=== PATIENT | male | born 1930 | race Caucasian/White ===

== ENCOUNTER 2018-11-17 19:11 | Inpatient (IN) | payer MEDICARE ==
[2018-11-17 20:13] LABS: Hemoglobin 15.1 g/dL (14.0-18.0); Mean Corpuscular HGB CONC 32.5 g/dL (32.0-36.0); Mean Corpuscular Hemoglobin 31.7 pg (27.0-31.0); Mean Corpuscular Volume 97.5 fL (78.0-98.0); Mean Platelet Volume 6.8 fL (7.4-10.4); Platelet Count 273 thou/uL (130-400); RBC Distribution Width 12.4 % (11.5-14.5); Red Blood Cell (RBC) Count 4.78 mill/uL (4.70-6.10); White Blood Cell (WBC) Count 29.6 thou/uL (4.8-10.8)
[2018-11-17] MEDS ORDERED: Acetaminophen 325 MG TAB ONE (20:20)
[2018-11-17] MEDS ORDERED: Sodium Chloride 0.9% 100 ML ONE (20:20)
[2018-11-17] MEDS ORDERED: Piperacillin/Tazobactam 4.5 GM VIAL ONE (20:20)
[2018-11-17 20:28] LABS: Lymphocytes 3 % (21-51); MDiff Complete? YES; Monocytes 9 % (0-10); Neutrophil 88 % (42-75); Platelet Morphology Comment Appears Adequate; RBC Morphology Normal
[2018-11-17 20:30] LABS: ALT (SGPT) 26 U/L (8-55); AST (SGOT) 25 U/L (5-34); Albumin 4.2 g/dL (3.4-4.8); Alkaline Phosphatase 152 U/L (40-150); Anion Gap 15 mmol/L (10-20); BUN (Urea Nitrogen) 12 mg/dL (8.4-25.7); Bilirubin, Total 1.3 mg/dL (0.2-1.2); Calc. Creatinine Clearance 0 mL/min (70-130); Calcium 9.5 mg/dL (7.8-10.44); Carbon Dioxide 23 mmol/L (23-31); Chloride 100 mmol/L (98-107); Estimated GFR-MDRD 72; Globulin 3.4 g/dL (2.4-3.5); Glucose 140 mg/dL (83-110); Protein, Total 7.6 g/dL (5.8-8.1); Sodium 134 mmol/L (136-145)
[2018-11-17 20:57] LABS: Bilirubin Small (Negative); Blood, Urine Moderate (Negative); Clarity CLOUDY (Clear); Glucose, Urine (Dipstick) Negative (Negative); Leukocyte Large (Negative); Nitrite Positive (Negative); Protein, Urine (Dipstick) 30 mg/dL (Neg-Trace); Specific Gravity, Urine 1.027 (1.002-1.036)
[2018-11-17 20:58] LABS: Bacteria/HPF 2+ HPF (None Seen); Hyaline Casts/LPF 4-6 HYALINE CAST LPF (0-3 Hyaline); Pathc Cast-AUWi Flag 1.01 (0-2.49); Squamous Epithelial 0-3 HPF (0-3)
--- NOTE | 2018-11-17 22:16 | CT ---
CT OF THE HEAD WITHOUT CONTRAST: Date: 11-17-18 History: Fall. Head trauma. Technique: Axial CT imaging at 5 mm intervals from vertex through the skull base without contrast. FINDINGS: There is supraorbital and periorbital soft tissue swelling on the left. There is no intracranial hemo rrhage, midline shift, or mass effect. There is mild diffuse cerebral volume loss. The imaged paranasal sinuses and mastoid air cells appear well aerated. There is no displaced calvari al fracture. Punctate focus of gas noted within the soft tissue swelling in the left supraorbital reg ion, evidence of laceration. IMPRESSION: Left periorbital/supraorbital soft tissue injury. No associated fracture or intracranial hemorrhage. POS: [facility]
--- NOTE | 2018-11-17 22:18 | RAD ---
FRONTAL RADIOGRAPH CHEST: Date: 11-17-18 Comparison: 11-06-09 History: Fall, injury. FINDINGS: Round radiodensity with central lucency noted within the left cardiophrenic angle suggesting a modera te sized hiatal hernia. The old left sided rib fractures are noted. There is increased linear interstitial density bilaterall y with no pneumothorax, pleural fluid, or lobar consolidation. IMPRESSION: No focal consolidation or alveolar edema. Incidental findings as above. POS: [facility]
[2018-11-17] MEDS ORDERED: Ondansetron ODT 4 MG TAB SL PRN (22:29)
[2018-11-17] MEDS ORDERED: Ondansetron PF 4 MG/2 ML Vial IVP PRN (22:29)
[2018-11-17] MEDS ORDERED: Acetaminophen 325 MG TAB PO PRN (22:29)
--- NOTE | 2018-11-17 22:50 | CT ---
CERVICAL SPINE CT SCAN WITHOUT IV CONTRAST: History: Recent falls with injury to head and neck. FINDINGS: Severe disc osteophytosis and facet arthrosis, evidence for severe spondylosis. No evidence for acute fracture or facet dislocation. Bony demineralization. IMPRESSION: Bony demineralization with spondylosis without acute fracture or dislocation. POS: [facility]
[2018-11-18] MEDS ORDERED: Piperacillin/Tazobactam 3.375 GM in Sodium Chloride 0.9% 100 ML IVPB SCH (04:00)
[2018-11-18] MEDS ORDERED: Diabetic Tussin 200 MG/10 ML UDCUP PO PRN (08:34)
[2018-11-18] MEDS ORDERED: Ondansetron ODT 4 MG TAB PO PRN (08:34)
[2018-11-18] MEDS ORDERED: Nitroglycerin 0.4 MG TAB (25 Tab Bottle) SL PRN (08:34)
[2018-11-18] MEDS ORDERED: Senokot S 8.6-50 MG TAB PO PRN (08:34)
[2018-11-18] MEDS ORDERED: Ondansetron PF 4 MG/2 ML Vial IVP PRN (08:34)
[2018-11-18] MEDS ORDERED: cloNIDine 0.1 MG TAB PO PRN (08:34)
[2018-11-18] MEDS ORDERED: Bisacodyl 5 MG TAB PO PRN (08:34)
[2018-11-18] MEDS ORDERED: hydrALAZINE 20 MG/ML VIAL SLOW IVP PRN (08:34)
[2018-11-18] MEDS: Saccharomyces boulardii 250 MG CAP PO SCH (09:10)
[2018-11-18] MEDS: Famotidine 20 MG TAB PO SCH ×2 (09:10→20:05)
[2018-11-18] MEDS: Enoxaparin Sodium 40 MG/0.4 ML SYRINGE SC SCH (09:10)
[2018-11-18] MEDS: Sodium Chloride 0.9% 1,000 ML IV SCH ×2 (09:11→23:28)
[2018-11-18] MEDS ORDERED: Escitalopram Oxalate 10 mg Tablet PO SCH ×2 (09:32→10:15)
--- NOTE | 2018-11-18 11:01 | HP ---
PRIMARY CARE PHYSICIAN: Kirill Long MD PRIMARY UROLOGIST: Duglas Delgadillo MD PRIMARY NEUROLOGIST: Aries Frost MD CHIEF COMPLAINT: Multiple falls and urinary frequency. HISTORY OF PRESENTING ILLNESS: Mr. Watkins is a very pleasant 88-year-old male with past medical history of non-Hodgkin lymphoma in remission for 15 years, as well as history of hypertension as well as history of benign prostatic hyperplasia, and alzheimer dementia, who presented to the emergency room with the above-mentioned complaint. History is mainly obtained by the patient's and supplemented by the patient himself, who is not a very good historian because of some [id number] dementia. Mr. Watkins is usually pretty independent and walks without help of a walker or a cane, but for the last 2 days, his noticed that he has been having multiple falls. He fell 3 times the day before yesterday and yesterday morning, he fell again in the bathroom and hit his head with bleeding all over. He was brought to our emergency room. There, he was found to have low-grade fever of 101.5. Further evaluation revealed leukocytosis with left shift. The source most likely being urine with urine bacteria +2 and multiple wbc's, leukocyte esterase, positive nitrites, etc. He was given Zosyn in the emergency room along other supportive measures like antiemetics and fluids and is now being admitted with the presumptive diagnosis of sepsis due to urinary tract infection. He had a CT scan done in the emergency room, which was negative for any intracranial or subdural bleed. His CT scan of the cervical spine was negative for any acute fracture or dislocation. Chest x-ray did not show any evidence of consolidation or edema. Code status, full code discussed with the patient. His is present at the bedside and conquer. His , Ms. Webster is a medical power of assistant city attorney for him. They have been for 15 years. The patient's also reports increased urinary frequency. She states that his urinalysis was done about a month ago by Dr. Delgadillo and at that time, it was without any evidence of infection. She denies any fevers or chills at home. He does have poor appetite and has been barely able to drink Pedialyte all day yesterday. There is no history of any chest pain, shortness of breath, otherwise. PAST MEDICAL HISTORY: 1. Alzheimer dementia. 2. History of non-Hodgkin lymphoma, currently in remission. 3. History of basal cell carcinoma status post removal. 4. BPH. PAST SURGICAL HISTORY: Skin cancer removal. PSYCHIATRIC HISTORY: Anxiety. SOCIAL HISTORY: He is and lives with his . Normally, he is independently mobile. No history of drug, tobacco, or alcohol abuse. This is his second marriage. ALLERGIES: NO KNOWN MEDICATION ALLERGIES. HOME MEDICATIONS: As follows; 1. Clonazepam 1 mg p.o. at bedtime. 2. Memantine 10 mg p.o. b.i.d. 3. Lexapro 10 mg daily. 4. Tamsulosin 0.4 mg daily. REVIEW OF SYSTEMS: A 12-point review of system is done, it is negative except for those mentioned in the history and physical. LABORATORY DATA: CBC shows WBCs 29.6 with 88% neutrophils. Hemoglobin, hematocrit, and platelet count are unremarkable. Serum chemistry shows sodium of 134, blood sugar 140, total bilirubin is mildly elevated to 1.3 and alkaline phosphatase 152, otherwise unremarkable. Lactic acid 1.9. Urinalysis is positive for blood, ketones, nitrite, bilirubin, urobilinogen, leukocyte esterase, wbc's, and multiple bacteria. Chest x-ray by my review has no evidence to suggest pleural effusion, edema, or infiltrate. CT scan of the brain is negative for any subdural hematoma or intracerebral hemorrhage. He does have left periorbital and supraorbital soft tissue injury by my review. CT scan of the cervical spine is negative for any evidence of fractures or dislocation. A 12-lead EKG by my review shows sinus tachycardia at 106 beats per minute with first-degree AV block. PHYSICAL EXAMINATION: VITAL SIGNS: Upon presentation to the ER, blood pressure 146/66, pulse of 106, respirations 22, saturating 95% on room air, and temperature 101.5. GENERAL: No acute distress. Awake, alert, and oriented x3. He is very pleasant and jovial, in good spirits. HEENT: Mucous membrane is slightly dry. No oropharyngeal exudate or erythema. Head is normocephalic and atraumatic, but he does have some laceration on top of his left eyebrow, which has been covered with bandages. Pupils are equal and reactive to light and accommodation. NECK: Supple without any lymphadenopathy, JVD, or bruit. CHEST: Clear to auscultation without any wheezing, rales, or rhonchi. HEART: Rhythm is regular without any murmurs, rubs, or gallops. ABDOMEN: Soft, nontender, and nondistended. Positive bowel sounds. EXTREMITIES: Free of any cyanosis, clubbing, or edema. NEUROLOGIC: Nonfocal. SKIN: Free of any rashes or bruises. Feels warm and dry to touch. PSYCHIATRIC: Normal affect. IMPRESSION AND PLAN: 1. Sepsis. This is secondary to urinary tract infection. Urine culture and blood cultures have been obtained and we will follow the results. We will obtain a bladder scan given his history of benign prostatic hypertrophy to rule out urinary retention as a cause of his UTI. He will be treated with broad-spectrum IV antibiotic. We will choose 2 broad-spectrum antibiotics until the culture results are back. He will be started with sepsis protocol with IV fluids as well. He is currently hemodynamically stable and will be admitted to medical floor. His blood cultures preliminary are negative so far and his influenza rapid screening is also negative. 2. Urinary tract infection as above. 3. Dehydration. The patient will be treated with gentle IV fluids. 4. History of benign prostatic hypertrophy. The patient will continue to follow up with Dr. Delgadillo in the outpatient setting. His home medications have been restarted including Flomax. 5. History of alzheimer dementia. He has a good functional status at baseline. We will restart his memantine and clonazepam and Lexapro. He will continue to follow up with Dr. Frost, in the outpatient setting. 6. Multiple falls, most likely secondary to ongoing infection leading to dehydration. We will have OT/PT evaluate him and arrange either rehab versus home health based on his necessity and recommendation on the day of discharge. 7. Code status. Full code discussed with the patient. DISPOSITION: Mr. Watkins is currently being admitted to the medical floor for sepsis secondary to UTI without any evidence of septic shock. He is hemodynamically stable. Estimated length of stay at this time is at least 2 to 3 midnights. Further management will depend upon his clinical course. Job ID: [id number]
[2018-11-18] MEDS: Piperacillin/Tazobactam 3.375 GM in Sodium Chloride 0.9% 100 ML IVPB SCH ×3 (12:34→23:24)
[2018-11-18] MEDS: Tamsulosin HCl 0.4 MG CAP PO SCH (20:05)
[2018-11-18] MEDS: clonazePAM 1 MG TAB PO SCH (20:05)
[2018-11-19] MEDS: Piperacillin/Tazobactam 3.375 GM in Sodium Chloride 0.9% 100 ML IVPB SCH ×3 (05:22→17:32)
[2018-11-19 06:49] LABS: Hemoglobin 11.6 g/dL (14.0-18.0); Mean Corpuscular HGB CONC 32.6 g/dL (32.0-36.0); Mean Corpuscular Hemoglobin 31.8 pg (27.0-31.0); Mean Corpuscular Volume 97.6 fL (78.0-98.0); Platelet Count 191 thou/uL (130-400); Red Blood Cell (RBC) Count 3.64 mill/uL (4.70-6.10); White Blood Cell (WBC) Count 26.6 thou/uL (4.8-10.8)
[2018-11-19 07:03] LABS: Anion Gap 9 mmol/L (10-20); BUN (Urea Nitrogen) 11 mg/dL (8.4-25.7); Calc. Creatinine Clearance 74 mL/min (70-130); Calcium 8.1 mg/dL (7.8-10.44); Carbon Dioxide 20 mmol/L (23-31); Chloride 107 mmol/L (98-107); Estimated GFR-MDRD Greater than 90; Glucose 102 mg/dL (83-110); Potassium 3.4 mmol/L (3.5-5.1); Sodium 133 mmol/L (136-145)
[2018-11-19 07:19] LABS: Acanthocytes SLIGHT = 1-5 cells (100X) (None Seen); Band 6 % (5-11); Eosinophils 1 % (0-10); Lymphocytes 3 % (21-51); MDiff Complete? YES; Monocytes 9 % (0-10); Neutrophil 80 % (42-75); Platelet Morphology Comment Appears Adequate
[2018-11-19] MEDS: Famotidine 20 MG TAB PO SCH ×2 (08:21→21:20)
[2018-11-19] MEDS: Saccharomyces boulardii 250 MG CAP PO SCH (08:21)
[2018-11-19] MEDS: Escitalopram Oxalate 10 mg Tablet PO SCH (08:22)
[2018-11-19] MEDS: Enoxaparin Sodium 40 MG/0.4 ML SYRINGE SC SCH (08:22)
--- NOTE | 2018-11-19 11:54 | PRG ---
DATE OF SERVICE: 11/19/2018 SUBJECTIVE: The patient is seen and examined at the bedside. Also a friends of the family in the room during my visit along with the patient's . Apparently, he is doing better. OBJECTIVE: VITAL SIGNS: Blood pressure is 137/70, pulse is 76, respirations 16, O2 saturation is 93% on room air, and his maximal temperature is 99.3. HEENT: His head is atraumatic and normocephalic. Eyes are PERRLA. Sclerae are nonicteric. Oral mucosa is slightly dry. NECK: Supple. No lymphadenopathy. Thyroid is not palpable. LUNGS: Clear. HEART: S1 and S2 normal. No S3. No S4. No any murmur. ABDOMEN: Soft and nontender. Bowel sounds are present. No organomegaly. EXTREMITIES: No clubbing, cyanosis, or edema. NEUROLOGIC: He follows my commands. He moves his all 4 extremities. LABORATORY DATA: Labs showed a white count of 26.6, hemoglobin 11.6, hematocrit 35.5, and platelet count is 191,000. Chemistry showed a sodium of 133, potassium 3.4, BUN 11, and creatinine 0.74. IMPRESSION: 1. Sepsis secondary to urinary tract infection were growing E. coli in the urine, sensitivity is still pending. Blood cultures are negative so far. We will continue his broad-spectrum until we have more information about sensitivity. 2. Urinary tract infection as above. 3. Dehydration improved with IV fluids. 4. Benign prostatic hypertrophy. He will follow up with Dr. Delgadillo in the outpatient setting. 5. Alzheimer dementia. 6. Multiple falls on PT and OT. PLAN: As I mentioned above, continue IV antibiotics. Continue PT/OT. Continue Flomax. Continue memantine, clonazepam, and Florastor. Job ID: [id number]
[2018-11-19] MEDS: Sodium Chloride 0.9% 1,000 ML IV SCH (12:24)
[2018-11-19] MEDS: Tamsulosin HCl 0.4 MG CAP PO SCH (21:19)
[2018-11-19] MEDS: clonazePAM 1 MG TAB PO SCH (21:19)
[2018-11-20] MEDS: Piperacillin/Tazobactam 3.375 GM in Sodium Chloride 0.9% 100 ML IVPB SCH ×2 (00:36→05:07)
[2018-11-20] MEDS: Sodium Chloride 0.9% 1,000 ML IV SCH ×2 (07:36→16:43)
[2018-11-20 07:52] VITALS: BMI 26.9
[2018-11-20] MEDS: Enoxaparin Sodium 40 MG/0.4 ML SYRINGE SC SCH (08:32)
[2018-11-20] MEDS: Famotidine 20 MG TAB PO SCH ×2 (08:32→20:24)
[2018-11-20] MEDS: Saccharomyces boulardii 250 MG CAP PO SCH (08:33)
[2018-11-20] MEDS: Escitalopram Oxalate 10 mg Tablet PO SCH (08:33)
[2018-11-20 12:12] LABS: #Eosinphils 0.2 thou/uL (0.0-0.7); #Neutrophils 11.4 thou/uL (1.40-6.50); %Basophils 0.1 % (0.0-1.0); %Eosinophils 1.4 % (0.0-10.0); %Lymphocytes 6.8 % (21.0-51.0); %Monocytes 13.9 % (0.0-10.0); %Neutrophils 77.8 % (42.0-75.0); Mean Corpuscular HGB CONC 33.3 g/dL (32.0-36.0); Mean Corpuscular Hemoglobin 32.4 pg (27.0-31.0); Mean Corpuscular Volume 97.2 fL (78.0-98.0); Platelet Count 213 thou/uL (130-400); RBC Distribution Width 12.2 % (11.5-14.5); Red Blood Cell (RBC) Count 3.71 mill/uL (4.70-6.10); White Blood Cell (WBC) Count 14.7 thou/uL (4.8-10.8)
[2018-11-20 13:01] LABS: Anion Gap 12 mmol/L (10-20); BUN (Urea Nitrogen) 9 mg/dL (8.4-25.7); Calc. Creatinine Clearance 87 mL/min (70-130); Carbon Dioxide 18 mmol/L (23-31); Chloride 106 mmol/L (98-107); Estimated GFR-MDRD Greater than 90; Glucose 134 mg/dL (83-110); Potassium 3.4 mmol/L (3.5-5.1); Sodium 133 mmol/L (136-145)
[2018-11-20] MEDS ORDERED: Potassium Chloride 20 MEQ TAB PO SCH (14:00)
--- NOTE | 2018-11-20 14:33 | PRG ---
DATE OF SERVICE: 11/20/2018 SUBJECTIVE: The patient is seen and examined at the bedside. He is doing quite well. He has appetite. He does not have much complaints to offer. OBJECTIVE: VITAL SIGNS: Blood pressure is 116/62, pulse is 73, respirations 18, temperature 97.7, O2 saturation is 95% on room air. HEENT: His left eyebrow and forehead on the left side is posttraumatic. There are strips in place and the area is ecchymotic. Pupils are responding to light properly. Sclerae nonicteric. Oral mucosa is moist. NECK: Supple. LUNGS: Clear. HEART: S1, S2 normal. No S3. No S4. No murmur. ABDOMEN: Soft, nontender. Bowel sounds are present. No organomegaly. EXTREMITIES: No clubbing, cyanosis, or edema. NEUROLOGICAL: He is alert and oriented x3. There are no motor deficits. LABORATORY DATA: Labs showed white count of 14.7, hemoglobin 12.0, hematocrit 36.1, platelet count 213. Sodium of 133, potassium 3.4, chloride 106, CO2 of 18, BUN 9, creatinine 0.74, glucose 134, calcium 8.0. Microbiology; urine is growing E coli pansensitive. IMPRESSION: 1. Urosepsis caused by E coli with negative blood cultures. Positive urine culture for pansensitive E coli. We will stop his Zosyn and continue his levofloxacin IV piggyback every 24 hours. 2. Urinary tract infection, as above. 3. Dehydration, improved with IV fluids. 4. Benign prostatic hypertrophy, on Flomax. 5. Alzheimer's dementia. 6. Multiple falls home. Currently on PT and OT. PLAN: Plan is to continue his IV levofloxacin, stop Zosyn. Continue PT, OT. Continue Flomax. Continue memantine, clonazepam and Florastor. Rehabilitation unit transfer as soon as this is arranged. We will obtain CBC in the morning and replace his potassium with 40 mEq half a tablet x1. Job ID: [id number]
[2018-11-20] MEDS: Tamsulosin HCl 0.4 MG CAP PO SCH (20:24)
[2018-11-20] MEDS: clonazePAM 1 MG TAB PO SCH (20:24)
[2018-11-21] MEDS: Sodium Chloride 0.9% 1,000 ML IV SCH ×2 (03:35→08:51)
[2018-11-21 07:51] LABS: Hemoglobin 12.4 g/dL (14.0-18.0); Mean Corpuscular HGB CONC 31.7 g/dL (32.0-36.0); Mean Corpuscular Hemoglobin 30.9 pg (27.0-31.0); Mean Corpuscular Volume 97.4 fL (78.0-98.0); Mean Platelet Volume 6.8 fL (7.4-10.4); Platelet Count 239 thou/uL (130-400); RBC Distribution Width 12.2 % (11.5-14.5); Red Blood Cell (RBC) Count 4.02 mill/uL (4.70-6.10); White Blood Cell (WBC) Count 14.2 thou/uL (4.8-10.8)
[2018-11-21 07:56] LABS: Anion Gap 10 mmol/L (10-20); BUN (Urea Nitrogen) 6 mg/dL (8.4-25.7); Calc. Creatinine Clearance 96 mL/min (70-130); Calcium 8.2 mg/dL (7.8-10.44); Carbon Dioxide 23 mmol/L (23-31); Chloride 106 mmol/L (98-107); Estimated GFR-MDRD Greater than 90; Glucose 93 mg/dL (83-110); Potassium 3.5 mmol/L (3.5-5.1); Sodium 135 mmol/L (136-145)
[2018-11-21 08:29] LABS: Acanthocytes SLIGHT = 1-5 cells (100X) (None Seen); Band 2 % (5-11); Eosinophils 2 % (0-10); Lymphocytes 8 % (21-51); MDiff Complete? YES; Monocytes 21 % (0-10); Neutrophil 66 % (42-75); Platelet Morphology Comment Appears Adequate; Reactive Lymphocytes 1 % (0-10)
[2018-11-21] MEDS: Enoxaparin Sodium 40 MG/0.4 ML SYRINGE SC SCH (08:48)
[2018-11-21] MEDS: Saccharomyces boulardii 250 MG CAP PO SCH (08:49)
[2018-11-21] MEDS: Famotidine 20 MG TAB PO SCH ×2 (08:49→20:37)
[2018-11-21] MEDS: Escitalopram Oxalate 10 mg Tablet PO SCH (08:49)
[2018-11-21] MEDS: Benzonatate 100 MG CAP PO PRN (09:02)
[2018-11-21 10:24] LABS: Total PSA 14.5 ng/mL (0.0-4.0)
--- NOTE | 2018-11-21 11:48 | ULT ---
BILATERAL RENAL SONOGRAM: Date: 11/21/18 HISTORY: Renal failure. Sepsis. FINDINGS: Right kidney is 11.3 cm and left kidney is 11.6 cm. Each has a normal sonographic appearance without evidence of mass, stone, or hydronephrosis. Urinary bladder is unremarkable. IMPRESSION: Normal renal sonogram. POS: [facility]
--- NOTE | 2018-11-21 12:17 | PRG ---
DATE OF SERVICE: 11/21/2018 SUBJECTIVE: The patient is seen and examined at the bedside. He is doing well. His appetite is good. He does not have much complaints to offer. His and one of his friends are in the room during my visit. They are happy from the progress we are making in his recovery. OBJECTIVE: VITAL SIGNS: Blood pressure is 124/89, pulse is 62, temperature is 98.1, maximal temperature is 98.7, respiratory rate is 16, and O2 saturation is 91% on room air. HEENT: He is post traumatic, post fall with some strips over his left eye and bruises in this area. Pupils are responding to light properly. Sclerae are nonicteric. Oral mucosa is moist. NECK: Supple. LUNGS: Clear. HEART: S1, S2 normal. No S3. No S4. No murmur. ABDOMEN: Obese, soft, nontender. Bowel sounds are present. No organomegaly. EXTREMITIES: No clubbing, cyanosis, or edema. NEUROLOGIC: He is alert and oriented x3. There is no any motor deficits. He is able to move his all 4 extremities. There is no any sign of cranial nerves dysfunction. LABORATORY DATA: Labs showed white count of 14.2, hemoglobin 12.4, hematocrit 39.2, platelet count is 239. Sodium of 135, potassium 3.5, chloride 106, CO2 of 23, BUN 6, creatinine 0.67, glucose 93, calcium 8.2. His PSA total is 14.5, free PSA is 21% and free PSA is 3.04. Urine culture is growing E. coli, pansensitive. Ultrasound of the kidneys did not show any abnormalities. IMPRESSION: 1. Urosepsis secondary to E. coli with negative blood cultures. The patient is switched to levofloxacin. 2. Urinary tract infection as above. 3. Dehydration, improved with IV fluids. 4. Elevated PSA, to rule out malignancy. The patient has a history of BPH, and he was on Flomax. We noticed that he has mild residuals of urine after voiding ranging from 200s to 300s. Dr. Delgadillo, his primary urologist, was contacted and I discussed the case with him. We will obtain his official consultation since his PSA is significantly elevated whether this is secondary to prostatitis or malignancy of the prostate. 5. Alzheimer's dementia, mild. 6. Multiple falls at home. PLAN: Plan is to continue his levofloxacin, continue physical therapy and occupational therapy, increase Flomax to twice a day, and obtain consultation with Dr. Delgadillo since his PSA is significantly elevated above the normal range. Job ID: [id number]
[2018-11-21] MEDS ORDERED: Sodium Chloride 0.9% 250 ML 250 ML IVPB SCH (16:15)
[2018-11-21] MEDS: Tamsulosin HCl 0.4 MG CAP PO SCH (20:37)
[2018-11-21] MEDS: clonazePAM 1 MG TAB PO SCH (20:37)
[2018-11-22] MEDS: Saccharomyces boulardii 250 MG CAP PO SCH (08:19)
[2018-11-22] MEDS: Finasteride 5 MG TAB PO SCH (08:19)
[2018-11-22] MEDS: Enoxaparin Sodium 40 MG/0.4 ML SYRINGE SC SCH (08:19)
[2018-11-22] MEDS: Escitalopram Oxalate 10 mg Tablet PO SCH (08:20)
[2018-11-22] MEDS: Famotidine 20 MG TAB PO SCH ×3 (08:20→21:26)
[2018-11-22] MEDS: Sodium Chloride 0.9% 1,000 ML IV SCH ×2 (08:20→22:50)
[2018-11-22] MEDS: Tamsulosin HCl 0.4 MG CAP PO SCH ×3 (08:21→21:58)
[2018-11-22] MEDS: Benzonatate 100 MG CAP PO PRN (19:50)
[2018-11-22] MEDS: clonazePAM 1 MG TAB PO SCH ×2 (19:52→21:27)
[2018-11-22] MEDS ORDERED: Lorazepam 2 MG/ML VIAL SLOW IVP SCH (21:15)
--- NOTE | 2018-11-23 07:48 | RAD ---
PORTABLE CHEST: Date: 11/23/18 PROVIDED CLINICAL HISTORY: Shortness of breath. COMPARISON: 11/17/18. FINDINGS: The cardiac silhouette is unchanged in appearance. Vascular calcification involves the aortic arch. P rominence of the pulmonary vasculature and pulmonary interstitium. No lobar consolidation, pleural fl uid, or pneumothorax apparent. IMPRESSION: Prominence of the pulmonary vasculature and pulmonary interstitium suggests congestive failure. POS: [facility]
[2018-11-23 08:10] LABS: #Eosinphils 0.4 thou/uL (0.0-0.7); #Lymphocytes 1.2 thou/uL (1.20-3.40); #Monocytes 2.3 thou/uL (0.11-0.59); #Neutrophils 12.5 thou/uL (1.40-6.50); %Basophils 0.1 % (0.0-1.0); %Eosinophils 2.6 % (0.0-10.0); %Lymphocytes 7.2 % (21.0-51.0); %Monocytes 13.8 % (0.0-10.0); %Neutrophils 76.2 % (42.0-75.0); Hemoglobin 12.7 g/dL (14.0-18.0); Mean Corpuscular HGB CONC 32.5 g/dL (32.0-36.0); Mean Corpuscular Hemoglobin 31.3 pg (27.0-31.0); Mean Corpuscular Volume 96.4 fL (78.0-98.0); Mean Platelet Volume 6.4 fL (7.4-10.4); Platelet Count 287 thou/uL (130-400); RBC Distribution Width 12.3 % (11.5-14.5); Red Blood Cell (RBC) Count 4.06 mill/uL (4.70-6.10); White Blood Cell (WBC) Count 16.4 thou/uL (4.8-10.8)
[2018-11-23 08:32] LABS: Anion Gap 11 mmol/L (10-20); BUN (Urea Nitrogen) 6 mg/dL (8.4-25.7); Calc. Creatinine Clearance 101 mL/min (70-130); Calcium 8.4 mg/dL (7.8-10.44); Carbon Dioxide 23 mmol/L (23-31); Chloride 104 mmol/L (98-107); Estimated GFR-MDRD Greater than 90; Glucose 130 mg/dL (83-110); Magnesium 1.6 mg/dL (1.6-2.6); Potassium 3.3 mmol/L (3.5-5.1); Sodium 135 mmol/L (136-145)
[2018-11-23] MEDS: Famotidine 20 MG TAB PO SCH ×2 (09:47→20:14)
[2018-11-23] MEDS: Escitalopram Oxalate 10 mg Tablet PO SCH (09:47)
[2018-11-23] MEDS: Enoxaparin Sodium 40 MG/0.4 ML SYRINGE SC SCH (09:47)
[2018-11-23] MEDS: Finasteride 5 MG TAB PO SCH (09:47)
[2018-11-23] MEDS: Saccharomyces boulardii 250 MG CAP PO SCH (09:47)
--- NOTE | 2018-11-23 10:25 | PRG ---
DATE OF SERVICE: 11/22/2018 SUBJECTIVE: The patient denies any new complaints at this time. Mentation has significantly improved. No chest pain, shortness of breath, palpitations, or focal neurologic deficit reported. OBJECTIVE: VITAL SIGNS: Temperature 98.2 with pulse rate of 69, respirations 17, O2 saturation 92% on 2 L nasal cannula, blood pressure 134/70. Orthostatic vitals were positive. GENERAL: An 88-year-old male, in no apparent distress. LUNGS: Clear to auscultation bilaterally with a few rales at bases. HEART: S1 and S2 present. Regular rate and rhythm. ABDOMEN: Soft. Bowel sounds present. EXTREMITIES: No edema or calf tenderness. LABORATORY DATA: WBC was 14.2 yesterday. Potassium was 3.5 with creatinine 0.67 yesterday. Renal ultrasound was negative for obstructive uropathy. IMPRESSION: 1. Sepsis secondary to Escherichia coli urinary tract infection. 2. Generalized weakness, multifactorial. 3. Toxic metabolic encephalopathy secondary to #1. 4. Positive orthostatic vital signs. 5. Dehydration on admission, improved with IV hydration. 6. Hypokalemia. 7. Elevated PSA at 14.5. 8. Alzheimer dementia. 9. Benign prostatic hypertrophy. 10. Multiple falls. PLAN: The patient is currently on IV fluids along with oral Levaquin. We will reduce Flomax dose to once a day due to positive orthostatic vital signs. We will get a chest x-ray in a.m. due to increased oxygen requirement. Recheck labs in a.m. Check cortisol level in a.m. half-way placement is currently in progress. We will continue other home medications. Home medications were reviewed. Plan was discussed with spouse at the bedside. Job ID: [id number]
--- NOTE | 2018-11-23 13:28 | EKG ---
Test Reason : Blood Pressure : / mmHG Vent. Rate : 106 BPM Atrial Rate : 106 BPM P-R Int : 234 ms QRS Dur : 150 ms QT Int : 326 ms P-R-T Axes : -23 -74 013 degrees QTc Int : 433 ms Suspect unspecified pacemaker failure Sinus tachycardia with 1st degree A-V block Left axis deviation Right bundle branch block Abnormal ECG Confirmed by MARYANN FLORES ([id number]), electronic news gathering editor DINORAH MOSS ([id number]) on 11/23/2018 1:27:55 PM Referred By: Confirmed By:MARYANN FLORES
--- NOTE | 2018-11-23 19:21 | PDOC.PN ---
- Subjective Encounter Start Date: 11/23/18 Encounter Start Time: 11:00 Patient seen and examined for Sepsis. No new complaints. No overnight events - Objective Resuscitation Status - Order Detail: 11/18/18 09:32 Resuscitation Status Routine Resuscitation Status: FULL: Full Resuscitation Discussed with: discussed with pt and (CHASE) MUSTAPHA Reviewed: Yes Vital Signs & Weight: Vital Signs (12 hours) Temp Pulse Pulse Resp BP BP BP 11/23/18 15:42 99.7 F H 73 16 11/23/18 11:52 98.1 F 70 16 11/23/18 09:25 78 100/63 92/51 L 106/48 L 11/23/18 08:00 98.4 F 96 16 BP BP BP BP Pulse Ox Pulse Ox 11/23/18 15:42 147/74 H 93 L 11/23/18 11:52 116/66 97 11/23/18 09:25 102/57 L 92 L 11/23/18 08:00 92/48 L 90/62 88/42 L 91 L Weight Weight 193 lb I&O: 11/22/18 11/23/18 11/24/18 06:59 06:59 06:59 Intake Total 600 700 Balance 600 700 Result Diagrams: 11/23/18 08:02 11/23/18 08:02 Additional Labs: Laboratory Tests 11/23/18 11/23/18 08:02 08:02 B-Natriuretic Peptide 761.7 H Cortisol 16.40 Phys Exam - Physical Examination Constitutional: NAD Respiratory: no wheezing, no rhonchi few rales at bases Cardiovascular: RRR, no rub Gastrointestinal: soft, non-tender, positive bowel sounds Dx/Plan - Plan DVT proph w/lovenox, DVT proph w/SCDs 1. Sepsis secondary to Escherichia coli urinary tract infection. 2. Generalized weakness, multifactorial. 3. Toxic metabolic encephalopathy secondary to #1. 4. Positive orthostatic vital signs. 5. Dehydration on admission, improved with IV hydration. 6. Hypokalemia. 7. Elevated PSA at 14.5. 8. Alzheimer dementia. 9. Benign prostatic hypertrophy. 10. Multiple falls. PLAN: CXR showed pulm vas congestion Will dc IV fluids Cont IV Levaquin Echo due to volume overload/elevated BNP AM labs Cont current meds as below Review of Systems - Review of Systems Respiratory: negative: Cough, Dry, Shortness of Breath, Hemoptysis, SOB with Excertion, Pleuritic Pain, Sputum, Wheezing Cardiovascular: negative: chest pain, palpitations, orthopnea, paroxysmal nocturnal dyspnea, edema, light headedness, other - Medications/Allergies Allergies/Adverse Reactions: Allergies Allergy/AdvReac Type Severity Reaction Status Date / Time No Known Allergies Allergy Verified 11/17/18 23:19 Medications: Current Medications Acetaminophen (Tylenol) 650 mg PO Q4H PRN PRN Reason: Headache/Fever/Mild Pain (1-3) Albuterol/Ipratropium (Duoneb) 3 ml NEB [id number] PRN PRN Reason: SOB &/or Wheezing Benzonatate (Tessalon) 100 mg PO Q6H PRN PRN Reason: Cough Last Admin: 11/21/18 09:02 Dose: 100 mg Bisacodyl (Dulcolax) 10 mg PO DAILYPRN PRN PRN Reason: Constipation Clonazepam (Klonopin) 1 mg PO HS [facility] Last Admin: 11/22/18 21:27 Dose: Not Given Clonidine (Catapres) 0.1 mg PO Q4H PRN PRN Reason: SBP >160 ____ Doxycycline Hyclate (Vibramycin) 100 mg PO BID [facility] Enoxaparin Sodium (Lovenox) 40 mg SC 0900 [facility] Last Admin: 11/23/18 09:47 Dose: 40 mg Escitalopram Oxalate (Lexapro) 10 mg PO DAILY [facility] [place] Last Admin: 11/23/18 09:47 Dose: 10 mg Famotidine (Pepcid) 20 mg PO BID [facility] [place] Last Admin: 11/23/18 09:47 Dose: 20 mg Finasteride (Proscar) 5 mg PO DAILY [facility] Last Admin: 11/23/18 09:47 Dose: 5 mg Guaifenesin (Robitussin Sf) 200 mg PO Q4H PRN PRN Reason: Cough Hydralazine HCl (Apresoline) 10 mg SLOW IVP Q4H PRN PRN Reason: SBP > 180 and HR < 70 Levofloxacin 500 mg/ Device 100 mls @ 100 mls/hr IVPB DAILY [facility] Memantine (Namenda) 10 mg PO BID [facility] Last Admin: 11/23/18 09:47 Dose: 10 mg Nitroglycerin (Nitrostat) 0.4 mg SL Q5MIN PRN PRN Reason: Chest Pain Ondansetron HCl (Zofran Odt) 4 mg PO Q6H PRN PRN Reason: Nausea/Vomiting Last Admin: 11/21/18 20:36 Dose: 4 mg Ondansetron HCl (Zofran) 4 mg IVP Q6H PRN PRN Reason: Nausea/Vomiting Saccharomyces Boulardii (Florastor) 250 mg PO DAILY [facility] [place] Last Admin: 11/23/18 09:47 Dose: 250 mg Senna/Docusate Sodium (Senokot S) 2 tab PO BID PRN PRN Reason: Constipation Sodium Chloride (Flush - Normal Saline) 10 ml IVF Q12HR [facility] Last Admin: 11/23/18 09:48 Dose: 10 ml Sodium Chloride (Flush - Normal Saline) 10 ml IVF PRN PRN PRN Reason: Saline Flush Tamsulosin HCl (Flomax) 0.4 mg PO HS [facility]
[2018-11-23] MEDS: Acetaminophen 325 MG TAB PO PRN (20:13)
[2018-11-23] MEDS: clonazePAM 1 MG TAB PO SCH (20:13)
[2018-11-23] MEDS: Tamsulosin HCl 0.4 MG CAP PO SCH (20:14)
[2018-11-23] MEDS ORDERED: Doxycycline 100 MG CAP PO SCH (21:00)
[2018-11-24 05:05] LABS: Anion Gap 9 mmol/L (10-20); BUN (Urea Nitrogen) 6 mg/dL (8.4-25.7); Calc. Creatinine Clearance 104 mL/min (70-130); Calcium 8.3 mg/dL (7.8-10.44); Carbon Dioxide 25 mmol/L (23-31); Chloride 103 mmol/L (98-107); Estimated GFR-MDRD Greater than 90; Glucose 100 mg/dL (83-110); Magnesium 1.6 mg/dL (1.6-2.6); Potassium 3.5 mmol/L (3.5-5.1); Sodium 133 mmol/L (136-145)
[2018-11-24 07:07] LABS: Band 1 % (5-11); Eosinophils 6 % (0-10); Lymphocytes 16 % (21-51); MDiff Complete? YES; Mean Corpuscular HGB CONC 32.8 g/dL (32.0-36.0); Mean Corpuscular Hemoglobin 32.4 pg (27.0-31.0); Mean Corpuscular Volume 98.9 fL (78.0-98.0); Mean Platelet Volume 6.7 fL (7.4-10.4); Metamyelocyte 1 % (0-0); Monocytes 9 % (0-10); Neutrophil 67 % (42-75); Platelet Count 321 thou/uL (130-400); RBC Distribution Width 12.1 % (11.5-14.5); Red Blood Cell (RBC) Count 3.68 mill/uL (4.70-6.10); White Blood Cell (WBC) Count 14.6 thou/uL (4.8-10.8)
[2018-11-24] MEDS: Enoxaparin Sodium 40 MG/0.4 ML SYRINGE SC SCH (08:53)
[2018-11-24] MEDS: Escitalopram Oxalate 10 mg Tablet PO SCH (08:54)
[2018-11-24] MEDS: Saccharomyces boulardii 250 MG CAP PO SCH (08:54)
[2018-11-24] MEDS: Famotidine 20 MG TAB PO SCH ×2 (08:55→20:58)
[2018-11-24] MEDS: Finasteride 5 MG TAB PO SCH (08:55)
[2018-11-24] MEDS ORDERED: Magnesium 2 GM/50 ML 2 GM in Premix Bag 1 BAG IVPB SCH (16:00)
[2018-11-24] MEDS: Potassium Chloride 10 MEQ TAB PO SCH (17:13)
--- NOTE | 2018-11-24 19:09 | PDOC.PN ---
- Subjective Encounter Start Date: 11/24/18 Encounter Start Time: 14:00 Patient seen and examined for Sepsis. No new complaints. No overnight events - Objective Resuscitation Status - Order Detail: 11/18/18 09:32 Resuscitation Status Routine Resuscitation Status: FULL: Full Resuscitation Discussed with: discussed with pt and (CHASE) MAR Reviewed: Yes Vital Signs & Weight: Vital Signs (12 hours) Temp Pulse Resp BP Pulse Ox 11/24/18 16:00 97.8 F 68 18 167/89 H 93 L 11/24/18 11:31 97.6 F 73 18 117/66 91 L 11/24/18 08:00 94 L 11/24/18 07:55 97.3 F L 69 18 139/70 94 L Weight Weight 193 lb I&O: 11/23/18 11/24/18 11/25/18 06:59 06:59 06:59 Intake Total 700 310 Balance 700 310 Result Diagrams: 11/24/18 04:22 11/24/18 04:22 Radiology Reviewed by me: No (Echo - Diastolic dys) Phys Exam - Physical Examination Constitutional: NAD Respiratory: no wheezing, no rhonchi few rales at bases Cardiovascular: RRR, no rub Gastrointestinal: soft, positive bowel sounds Musculoskeletal: no edema Neurological: moves all 4 limbs Dx/Plan - Plan DVT proph w/lovenox, DVT proph w/SCDs 1. Sepsis secondary to Escherichia coli urinary tract infection. 2. Generalized weakness, multifactorial. 3. Toxic metabolic encephalopathy secondary to #1. 4. Positive orthostatic vital signs - prob due to increasing flomax dose 5. Acute on chronic diastolic HF due to IV fluids/sepsis. 6. Hypokalemia/Hypomagnesemia 7. Elevated PSA at 14.5. 8. Alzheimer dementia. 9. Benign prostatic hypertrophy. 10. h/o Multiple falls. 11. Dehydration on admission, improved with IV hydration. PLAN: Replace Magnesium Cont IV Levaquin Low dose Lasix AM labs Cont other meds as below Await placement - Stable for dc Review of Systems - Review of Systems Cardiovascular: negative: chest pain, palpitations, orthopnea, paroxysmal nocturnal dyspnea, edema, light headedness, other Gastrointestinal: negative: Nausea, Vomiting, Abdominal Pain, Diarrhea, Constipation, Melena, Hematochezia, Other - Medications/Allergies Allergies/Adverse Reactions: Allergies Allergy/AdvReac Type Severity Reaction Status Date / Time No Known Allergies Allergy Verified 11/17/18 23:19 Medications: Current Medications Acetaminophen (Tylenol) 650 mg PO Q4H PRN PRN Reason: Headache/Fever/Mild Pain (1-3) Last Admin: 11/23/18 20:13 Dose: 650 mg Albuterol/Ipratropium (Duoneb) 3 ml NEB [id number] PRN PRN Reason: SOB &/or Wheezing Benzonatate (Tessalon) 100 mg PO Q6H PRN PRN Reason: Cough Last Admin: 11/21/18 09:02 Dose: 100 mg Bisacodyl (Dulcolax) 10 mg PO DAILYPRN PRN PRN Reason: Constipation Clonazepam (Klonopin) 1 mg PO [facility] Last Admin: 11/23/18 20:13 Dose: 1 mg Clonidine (Catapres) 0.1 mg PO Q4H PRN PRN Reason: SBP >160 ____ Enoxaparin Sodium (Lovenox) 40 mg SC 0900 [facility] Last Admin: 11/24/18 08:53 Dose: 40 mg Escitalopram Oxalate (Lexapro) 10 mg PO DAILY [facility] Last Admin: 11/24/18 08:54 Dose: 10 mg Famotidine (Pepcid) 20 mg PO BID [facility] Last Admin: 11/24/18 08:55 Dose: 20 mg Finasteride (Proscar) 5 mg PO DAILY [facility] Last Admin: 11/24/18 08:55 Dose: 5 mg Furosemide (Lasix) 20 mg PO DAILY [facility] Guaifenesin (Robitussin Sf) 200 mg PO Q4H PRN PRN Reason: Cough Hydralazine HCl (Apresoline) 10 mg SLOW IVP Q4H PRN PRN Reason: SBP > 180 and HR < 70 Levofloxacin 500 mg/ Device 100 mls @ 100 mls/hr IVPB DAILY [facility] Last Admin: 11/24/18 08:54 Dose: 100 mls Memantine (Namenda) 10 mg PO BID [facility] Last Admin: 11/24/18 08:54 Dose: 10 mg Nitroglycerin (Nitrostat) 0.4 mg SL Q5MIN PRN PRN Reason: Chest Pain Ondansetron HCl (Zofran Odt) 4 mg PO Q6H PRN PRN Reason: Nausea/Vomiting Last Admin: 11/21/18 20:36 Dose: 4 mg Ondansetron HCl (Zofran) 4 mg IVP Q6H PRN PRN Reason: Nausea/Vomiting Potassium Chloride (Klor-Con 10) 10 meq PO BID-[facility] Last Admin: 11/24/18 17:13 Dose: 10 meq Saccharomyces Boulardii (Florastor) 250 mg PO DAILY [facility] Last Admin: 11/24/18 08:54 Dose: 250 mg Senna/Docusate Sodium (Senokot S) 2 tab PO BID PRN PRN Reason: Constipation Sodium Chloride (Flush - Normal Saline) 10 ml IVF Q12HR [facility] Last Admin: 11/24/18 08:57 Dose: 10 ml Sodium Chloride (Flush - Normal Saline) 10 ml IVF PRN PRN PRN Reason: Saline Flush Tamsulosin HCl (Flomax) 0.4 mg PO HS [facility] Last Admin: 11/23/18 20:14 Dose: 0.4 mg
[2018-11-24] MEDS: Acetaminophen 325 MG TAB PO PRN (20:58)
[2018-11-24] MEDS: clonazePAM 1 MG TAB PO SCH (20:58)
[2018-11-24] MEDS: Tamsulosin HCl 0.4 MG CAP PO SCH (20:58)
[2018-11-25 06:26] LABS: Anion Gap 14 mmol/L (10-20); BUN (Urea Nitrogen) 8 mg/dL (8.4-25.7); Calc. Creatinine Clearance 99 mL/min (70-130); Calcium 8.5 mg/dL (7.8-10.44); Carbon Dioxide 23 mmol/L (23-31); Chloride 105 mmol/L (98-107); Estimated GFR-MDRD Greater than 90; Glucose 89 mg/dL (83-110); Potassium 3.7 mmol/L (3.5-5.1); Sodium 138 mmol/L (136-145)
[2018-11-25 06:34] LABS: Band 3 % (5-11); Eosinophils 4 % (0-10); Hemoglobin 13.1 g/dL (14.0-18.0); Lymphocytes 10 % (21-51); MDiff Complete? YES; Mean Corpuscular HGB CONC 32.1 g/dL (32.0-36.0); Mean Corpuscular Hemoglobin 31.9 pg (27.0-31.0); Mean Corpuscular Volume 99.4 fL (78.0-98.0); Mean Platelet Volume 6.4 fL (7.4-10.4); Monocytes 14 % (0-10); Neutrophil 69 % (42-75); Platelet Count 381 thou/uL (130-400); RBC Distribution Width 12.4 % (11.5-14.5); Red Blood Cell (RBC) Count 4.11 mill/uL (4.70-6.10); White Blood Cell (WBC) Count 12.1 thou/uL (4.8-10.8)
[2018-11-25] MEDS: Escitalopram Oxalate 10 mg Tablet PO SCH (08:23)
[2018-11-25] MEDS: Saccharomyces boulardii 250 MG CAP PO SCH (08:23)
[2018-11-25] MEDS: Potassium Chloride 10 MEQ TAB PO SCH ×2 (08:23→17:25)
[2018-11-25] MEDS: Finasteride 5 MG TAB PO SCH (08:26)
[2018-11-25] MEDS: Furosemide 20 MG TAB PO SCH (08:26)
[2018-11-25] MEDS: Famotidine 20 MG TAB PO SCH ×2 (08:26→20:05)
[2018-11-25] MEDS: Enoxaparin Sodium 40 MG/0.4 ML SYRINGE SC SCH (08:27)
--- NOTE | 2018-11-25 15:29 | PDOC.PN ---
- Subjective Encounter Start Date: 11/25/18 Encounter Start Time: 10:30 Patient seen and examined for Sepsis. No new complaints. No overnight events - Objective Resuscitation Status - Order Detail: 11/18/18 09:32 Resuscitation Status Routine Resuscitation Status: FULL: Full Resuscitation Discussed with: discussed with pt and (CHASE) MAR Reviewed: Yes Vital Signs & Weight: Vital Signs (12 hours) Temp Pulse Resp BP BP Pulse Ox 11/25/18 10:57 97.7 F 71 16 118/71 92 L 11/25/18 07:57 97.7 F 74 16 158/82 H 94 L 11/25/18 04:37 97.7 F 70 20 128/69 96 Weight Weight 193 lb I&O: 11/24/18 11/25/18 11/26/18 06:59 06:59 06:59 Intake Total 310 1520 Balance 310 1520 Result Diagrams: 11/25/18 05:29 11/25/18 05:29 Phys Exam - Physical Examination Constitutional: NAD Respiratory: no wheezing, no rhonchi Cardiovascular: RRR, no rub Gastrointestinal: soft, non-tender, positive bowel sounds Musculoskeletal: no edema Neurological: moves all 4 limbs Dx/Plan - Plan DVT proph w/lovenox, DVT proph w/SCDs 1. Sepsis secondary to Escherichia coli urinary tract infection. - on IV Levaquin 2. Generalized weakness, multifactorial. 3. Toxic metabolic encephalopathy secondary to #1. 4. Positive orthostatic vital signs - prob due to increasing flomax dose 5. Acute on chronic diastolic HF due to IV fluids/sepsis. 6. Hypokalemia/Hypomagnesemia 7. Elevated PSA at 14.5. 8. Alzheimer dementia. 9. Benign prostatic hypertrophy. 10. h/o Multiple falls. 11. Dehydration on admission, improved with IV hydration. PLAN: Cont IV Levaquin - change to PO at dc Cont Lasix AM labs Cont other meds as below Await placement - Stable for dc Review of Systems - Review of Systems Constitutional: negative: fever, chills, sweats, weakness, malaise, other Respiratory: negative: Cough, Dry, Shortness of Breath, Hemoptysis, SOB with Excertion, Pleuritic Pain, Sputum, Wheezing Cardiovascular: negative: chest pain, palpitations, orthopnea, paroxysmal nocturnal dyspnea, edema, light headedness, other Gastrointestinal: negative: Nausea, Vomiting, Abdominal Pain, Diarrhea, Constipation, Melena, Hematochezia, Other - Medications/Allergies Allergies/Adverse Reactions: Allergies Allergy/AdvReac Type Severity Reaction Status Date / Time No Known Allergies Allergy Verified 11/17/18 23:19 Medications: Current Medications Acetaminophen (Tylenol) 650 mg PO Q4H PRN PRN Reason: Headache/Fever/Mild Pain (1-3) Last Admin: 11/24/18 20:58 Dose: 650 mg Albuterol/Ipratropium (Duoneb) 3 ml NEB [id number] PRN PRN Reason: SOB &/or Wheezing Benzonatate (Tessalon) 100 mg PO Q6H PRN PRN Reason: Cough Last Admin: 11/21/18 09:02 Dose: 100 mg Bisacodyl (Dulcolax) 10 mg PO DAILYPRN PRN PRN Reason: Constipation Clonazepam (Klonopin) 1 mg PO [facility] Last Admin: 11/24/18 20:58 Dose: 1 mg Clonidine (Catapres) 0.1 mg PO Q4H PRN PRN Reason: SBP >160 ____ Enoxaparin Sodium (Lovenox) 40 mg SC 0900 [facility] Last Admin: 11/25/18 08:27 Dose: 40 mg Escitalopram Oxalate (Lexapro) 10 mg PO DAILY [facility] Last Admin: 11/25/18 08:23 Dose: 10 mg Famotidine (Pepcid) 20 mg PO BID [facility] Last Admin: 11/25/18 08:26 Dose: 20 mg Finasteride (Proscar) 5 mg PO DAILY [facility] Last Admin: 11/25/18 08:26 Dose: 5 mg Furosemide (Lasix) 20 mg PO DAILY [facility] Last Admin: 11/25/18 08:26 Dose: 20 mg Guaifenesin (Robitussin Sf) 200 mg PO Q4H PRN PRN Reason: Cough Hydralazine HCl (Apresoline) 10 mg SLOW IVP Q4H PRN PRN Reason: SBP > 180 and HR < 70 Levofloxacin 500 mg/ Device 100 mls @ 100 mls/hr IVPB DAILY [facility] Last Admin: 11/25/18 08:27 Dose: 100 mls Memantine (Namenda) 10 mg PO BID [facility] Last Admin: 11/25/18 08:36 Dose: 10 mg Nitroglycerin (Nitrostat) 0.4 mg SL Q5MIN PRN PRN Reason: Chest Pain Ondansetron HCl (Zofran Odt) 4 mg PO Q6H PRN PRN Reason: Nausea/Vomiting Last Admin: 11/21/18 20:36 Dose: 4 mg Ondansetron HCl (Zofran) 4 mg IVP Q6H PRN PRN Reason: Nausea/Vomiting Potassium Chloride (Klor-Con 10) 10 meq PO BID-[facility] Last Admin: 11/25/18 08:23 Dose: 10 meq Saccharomyces Boulardii (Florastor) 250 mg PO DAILY [facility] Last Admin: 11/25/18 08:23 Dose: 250 mg Senna/Docusate Sodium (Senokot S) 2 tab PO BID PRN PRN Reason: Constipation Sodium Chloride (Flush - Normal Saline) 10 ml IVF Q12HR [facility] Last Admin: 11/25/18 08:27 Dose: 10 ml Sodium Chloride (Flush - Normal Saline) 10 ml IVF PRN PRN PRN Reason: Saline Flush Tamsulosin HCl (Flomax) 0.4 mg PO [facility] Last Admin: 11/24/18 20:58 Dose: 0.4 mg
[2018-11-25] MEDS: clonazePAM 1 MG TAB PO SCH (20:05)
[2018-11-25] MEDS: Acetaminophen 325 MG TAB PO PRN (20:05)
[2018-11-25] MEDS: Tamsulosin HCl 0.4 MG CAP PO SCH (20:05)
[2018-11-26] MEDS: Enoxaparin Sodium 40 MG/0.4 ML SYRINGE SC SCH (08:41)
[2018-11-26] MEDS: Famotidine 20 MG TAB PO SCH (08:42)
[2018-11-26] MEDS: Escitalopram Oxalate 10 mg Tablet PO SCH (08:42)
[2018-11-26] MEDS: Furosemide 20 MG TAB PO SCH (08:42)
[2018-11-26] MEDS: Potassium Chloride 10 MEQ TAB PO SCH (08:42)
[2018-11-26] MEDS: Finasteride 5 MG TAB PO SCH (08:42)
[2018-11-26] MEDS: Saccharomyces boulardii 250 MG CAP PO SCH (08:42)
[2018-11-26 11:48] VITALS: TEMP 97.9
[2018-11-26] MEDS ORDERED: Sodium Chloride 0.9% 250 ML IV SCH (12:30)
[2018-11-26 17:41] VITALS: BP 108/58
--- NOTE | 2018-11-27 11:06 | DIS ---
DATE OF ADMISSION: 11/17/2018 DATE OF DISCHARGE: 11/26/2018 DISCHARGE DISPOSITION: Inpatient rehabilitation. FOLLOWUP: Follow up with primary care physician, Dr. Kirill Long in 1 week. ALLERGIES: NO KNOWN DRUG ALLERGIES. DISCHARGE MEDICATIONS: 1. Clonazepam 1 mg at bedtime. 2. Lexapro 10 mg daily. 3. Namenda 10 mg b.i.d. 4. Flomax 0.4 mg at bedtime. 5. Levaquin 500 mg daily for 5 more days. 6. Florastor 250 mg daily. 7. Senokot-S as needed. INPATIENT CONSULTANTS: None. DISCHARGE CONDITION: The patient was seen and examined on the day of discharge. Denies any new complaints. No chest pain, shortness of breath, palpitations, or fever reported. BRIEF HOSPITAL COURSE: The patient is an 88-year-old male with benign prostatic hypertrophy and Alzheimer's dementia, was brought into the hospital with multiple falls and urinary frequency. His workup was consistent with urinary tract infection with sepsis. Urine culture showed E coli, which was sensitive to Levaquin. He showed good improvement with antibiotics. He also had some overload with IV fluids. This improved after discontinuation of the IV fluids. Blood culture remained negative. He was discharged to inpatient rehabilitation. DIAGNOSTIC TESTS: 1. Echocardiogram on 24 November 2018 showed ejection fraction of 55% to 60% with diastolic dysfunction. 2. Chest x-ray on showed pulmonary vascular congestion. 3. CT scan of the brain was negative for intracranial hemorrhage. There was left periorbital/supraorbital soft tissue injury. 4. Renal ultrasound was negative for obstructive uropathy. 5. WBC count on admission was 26.6, at discharge 12.1. 6. PSA was 14.5. 7. Sodium 138 at discharge and 133 was the lowest. Potassium 3.4, at discharge was 3.5. 8. Urinalysis showed greater than 50 wbc's with 2+ bacteria. DISCHARGE DIAGNOSES: 1. Sepsis secondary to Escherichia coli urinary tract infection. 2. Generalized weakness with fall causing abrasion to the left forehead. 3. Toxic metabolic encephalopathy secondary to #1. 4. Positive orthostatic hypotension after increasing Flomax to b.i.d. The blood pressure improved after changing Flomax back to once a day. 5. Acute on chronic diastolic heart failure due to IV fluid resuscitation for sepsis, improved. 6. Hypokalemia. 7. Hypomagnesemia. 8. Elevated PSA at 14.5. The patient was advised to follow up with Dr. Delgadillo as an outpatient. 9. Alzheimer dementia. 10. Benign prostatic hypertrophy. 11. History of multiple falls. 12. Dehydration on admission, improved with IV fluids. PLAN: Plan of care was discussed with the patient and the family in detail. They stated understanding. Job ID: [id number]
== END 2018-11-26 16:55 | DRG 871 ==
LOC: ERS 19:11 → SURG B 22:13
PROVIDERS: ADMIT Internal Medicine; ATTEND Internal Medicine
DX: A41.9 Sepsis, unspecified organism (principal); G92 Toxic encephalopathy; I50.33 Acute on chronic diastolic (congestive) heart failure; N39.0 Urinary tract infection, site not specified; R35.0 Frequency of micturition; N40.0 Benign prostatic hyperplasia without lower urinary tract symptoms; G30.9 Alzheimer's disease, unspecified; F02.80 Dementia in other diseases classified elsewhere, unspecified severity, without behavioral disturbance, psychotic disturbance, mood disturbance, and anxiety; F41.9 Anxiety disorder, unspecified; I44.0 Atrioventricular block, first degree; E86.0 Dehydration; B96.20 Unspecified Escherichia coli [E. coli] as the cause of diseases classified elsewhere; E87.6 Hypokalemia; I11.0 Hypertensive heart disease with heart failure; E83.42 Hypomagnesemia; I95.1 Orthostatic hypotension; R29.6 Repeated falls; Z85.828 Personal history of other malignant neoplasm of skin; Z85.72 Personal history of non-Hodgkin lymphomas
CPT/HCPCS: 36415; 70450; 71045; 72125; 76770; 80048; 80053; 81003; 81015; 82533; 83605; 83735; 83880; 84153; 84154; 85025; 87040; 87077; 87086; 87186; 87804; 93005; 93306; 94760; 96365; J1650; J1956; J2060; J2543; J7050; Q0162